=== PATIENT | male | born 1955 | race Caucasian/White ===

== ENCOUNTER 2021-04-17 14:37 | Outpatient (CLI) | payer MEDICARE | END 2021-04-17 14:38 | disposition home or self-care (01) | LOC: BICMRI 14:37 | PROVIDERS: ATTEND Specialist | DX: M51.16 Intervertebral disc disorders with radiculopathy, lumbar region (principal); M47.26 Other spondylosis with radiculopathy, lumbar region; M47.27 Other spondylosis with radiculopathy, lumbosacral region; M48.061 Spinal stenosis, lumbar region without neurogenic claudication; M41.9 Scoliosis, unspecified | CPT/HCPCS: 72148 ==

== ENCOUNTER 2021-05-14 11:14 | Outpatient (CLI) | payer MEDICARE | END 2021-05-14 11:15 | disposition home or self-care (01) | LOC: BICRAD 11:14 | PROVIDERS: ATTEND Specialist | DX: M43.06 Spondylolysis, lumbar region (principal); M41.86 Other forms of scoliosis, lumbar region | CPT/HCPCS: 72120 ==

== ENCOUNTER 2021-06-20 05:57 | Inpatient (IN) | payer MEDICARE ==
[2021-06-17 08:53] LABS: Anion Gap 13 mmol/L (10-20); BUN (Urea Nitrogen) 20 mg/dL (8.4-25.7); Calc. Creatinine Clearance 0 mL/min (70-130); Calcium 9.9 mg/dL (7.8-10.44); Carbon Dioxide 27 mmol/L (23-31); Chloride 102 mmol/L (98-107); Glucose 107 mg/dL (80-115); PTT 27.1 sec (22.0-33.0); Potassium 3.9 mmol/L (3.5-5.1); Sodium 138 mmol/L (136-145)
[2021-06-17 08:58] LABS: Hemoglobin 15.4 g/dL (13.5-17.5); Mean Corpuscular HGB CONC 34.8 g/dL (32.0-36.0); Mean Corpuscular Hemoglobin 32.4 pg (27.0-33.0); Mean Corpuscular Volume 92.9 fl (81.2-95.1); Mean Platelet Volume 9.6 fl (7.4-10.4); Platelet Count 184 10x3/uL (150-450); RBC Distribution Width 12.8 % (11.5-14.5); Red Blood Cell (RBC) Count 4.76 10x6/uL (4.32-5.72); White Blood Cell (WBC) Count 5.1 10x3/uL (3.5-10.5)
[2021-06-17 19:28] LABS: SARS-CoV-2 PCR by NAA Not Detected (NotDetected)
[2021-06-20] MEDS ORDERED: Fentanyl 100 MCG/2 ML VIAL ONE ×3 (06:34→14:54)
[2021-06-20] MEDS ORDERED: Thrombin 5000 UNITS/5 ML VIAL ONE ×2 (06:37→11:53)
[2021-06-20] MEDS ORDERED: Lidocaine 1% PF 5 ML VIAL ONE (07:43)
[2021-06-20] MEDS ORDERED: Ondansetron PF 4 MG/2 ML Vial ONE (07:43)
[2021-06-20] MEDS ORDERED: ePHEDrine 50 MG/ML VIAL ONE (07:43)
[2021-06-20] MEDS ORDERED: Rocuronium Bromide 10 MG/ML (10ML VIAL) ONE (07:43)
[2021-06-20] MEDS ORDERED: Ketorolac Tromethamine 30 MG/ML VIAL ONE (07:43)
[2021-06-20] MEDS ORDERED: PROPOFOL 200 MG/20 ML VIAL ONE (07:43)
[2021-06-20] MEDS ORDERED: PHENYLEPHRINE-NS 100 MCG/ML 10 ML SYRINGE ONE (07:43)
[2021-06-20] MEDS ORDERED: Phenylephrine 10 MG/ML VIAL ONE ×3 (08:43→12:04)
[2021-06-20] MEDS ORDERED: Rocuronium Bromide 50 MG/5 ML VIAL ONE (10:42)
[2021-06-20] MEDS ORDERED: HYDROmorphone 2 MG/ML VIAL ONE (11:40)
[2021-06-20] MEDS ORDERED: SUGAMMADEX SODIUM 200 MG/2 ML VIAL ONE (12:13)
[2021-06-20] MEDS ORDERED: Albumin 5% 500 ML ONE (12:24)
[2021-06-20] MEDS ORDERED: Morphine 2 MG/ML VIAL SLOW IVP PRN (13:58)
[2021-06-20] MEDS ORDERED: Acetaminophen 325 MG TAB PO PRN (13:58)
[2021-06-20] MEDS ORDERED: traMADol HCl 50 MG TAB PO PRN (13:58)
[2021-06-20] MEDS ORDERED: Acetaminophen/Codeine 30-300mg Tablet PO PRN (13:58)
[2021-06-20] MEDS ORDERED: Ondansetron HCl/PF 4 MG/2 ML Vial IVP PRN (14:03)
[2021-06-20] MEDS ORDERED: Promethazine HCl 25 MG/ML VIAL IVPB PRN (14:03)
[2021-06-20] MEDS ORDERED: Promethazine HCl 25 MG/ML VIAL IM PRN (14:03)
[2021-06-20] MEDS ORDERED: HYDROmorphone 2 MG/ML VIAL SLOW IVP PRN (14:03)
[2021-06-20] MEDS: Sodium Chloride 0.9% 1,000 ML IV SCH (16:30)
[2021-06-20] MEDS: CEFAZOLIN 2 GM in Premix Bag 1 BAG IVPB SCH ×2 (18:00→22:06)
[2021-06-20] MEDS: HYDROcodone/Acetaminophen 7.5/325 mg Tablet PO PRN (19:33)
[2021-06-20] MEDS: Naproxen 500 MG TAB PO SCH (20:20)
[2021-06-20] MEDS: tiZANidine HCl 4 MG TAB PO PRN (22:05)
[2021-06-21] MEDS: HYDROcodone/Acetaminophen 7.5/325 mg Tablet PO PRN ×2 (04:23→13:37)
[2021-06-21] MEDS: Sodium Chloride 0.9% 1,000 ML IV SCH ×2 (04:24→18:50)
[2021-06-21 06:05] LABS: #Lymphocytes 1.1 thou/uL (1.20-3.40); #Monocytes 0.8 thou/uL (0.11-0.59); #Neutrophils 7.8 thou/uL (1.40-6.50); %Basophils 0.1 % (0.0-1.0); %Eosinophils 0.1 % (0.0-10.0); %Lymphocytes 11.3 % (21.0-51.0); %Monocytes 8.3 % (0.0-10.0); %Neutrophils 80.2 % (42.0-75.0); Hemoglobin 11.6 g/dL (14.0-18.0); Mean Corpuscular HGB CONC 34.6 g/dL (32.0-36.0); Mean Corpuscular Hemoglobin 34.1 pg (27.0-31.0); Mean Corpuscular Volume 98.4 fL (78.0-98.0); Mean Platelet Volume 7.2 fL (7.4-10.4); Platelet Count 152 thou/uL (130-400); RBC Distribution Width 12.1 % (11.5-14.5); White Blood Cell (WBC) Count 9.8 thou/uL (4.8-10.8)
[2021-06-21 06:24] LABS: Anion Gap 11 mmol/L (10-20); BUN (Urea Nitrogen) 11 mg/dL (8.4-25.7); Calc. Creatinine Clearance 184 mL/min (70-130); Calcium 8.3 mg/dL (7.8-10.44); Carbon Dioxide 26 mmol/L (23-31); Chloride 106 mmol/L (98-107); Glucose 124 mg/dL (80-115); Sodium 139 mmol/L (136-145)
[2021-06-21] MEDS: CEFAZOLIN 2 GM in Premix Bag 1 BAG IVPB SCH ×3 (06:42→23:10)
[2021-06-21] MEDS: Hydrochlorothiazide 25 MG TAB PO SCH (08:57)
[2021-06-21] MEDS: Losartan 25 MG TAB PO SCH (08:57)
[2021-06-21] MEDS: Tamsulosin HCl 0.4 MG CAP PO SCH (08:57)
[2021-06-21] MEDS: tiZANidine HCl 4 MG TAB PO PRN ×2 (09:01→17:23)
[2021-06-21 11:04] VITALS: BMI 38.6
[2021-06-21] MEDS: Naproxen 500 MG TAB PO SCH (21:22)
[2021-06-22] MEDS: tiZANidine HCl 4 MG TAB PO PRN ×2 (00:43→16:46)
[2021-06-22] MEDS: HYDROcodone/Acetaminophen 7.5/325 mg Tablet PO PRN ×2 (05:24→20:38)
[2021-06-22] MEDS: CEFAZOLIN 2 GM in Premix Bag 1 BAG IVPB SCH (05:26)
[2021-06-22] MEDS: Sodium Chloride 0.9% 1,000 ML IV SCH ×2 (05:31→20:43)
[2021-06-22] MEDS: Tamsulosin HCl 0.4 MG CAP PO SCH (08:57)
[2021-06-22] MEDS: Hydrochlorothiazide 25 MG TAB PO SCH (09:47)
[2021-06-22] MEDS: Losartan 25 MG TAB PO SCH (09:47)
[2021-06-22] MEDS ORDERED: Polyethylene Glycol 3350 17 GM Packet PO PRN (12:29)
[2021-06-22] MEDS ORDERED: Docusate 100 MG CAP PO SCH (12:30)
[2021-06-22] MEDS: Docusate 100 MG CAP PO SCH (20:38)
[2021-06-22] MEDS: Naproxen 500 MG TAB PO SCH (20:39)
[2021-06-23] MEDS: Tamsulosin HCl 0.4 MG CAP PO SCH (08:26)
[2021-06-23] MEDS: Docusate 100 MG CAP PO SCH (08:26)
[2021-06-23] MEDS: Sodium Chloride 0.9% 1,000 ML IV SCH (08:27)
[2021-06-23] MEDS: Losartan 25 MG TAB PO SCH (08:27)
[2021-06-23] MEDS: Hydrochlorothiazide 25 MG TAB PO SCH (08:27)
[2021-06-23] MEDS: HYDROcodone/Acetaminophen 7.5/325 mg Tablet PO PRN ×2 (09:04→17:13)
[2021-06-23 11:37] VITALS: TEMP 98.2
[2021-06-23 15:32] VITALS: BP 132/82
== END 2021-06-23 17:20 | disposition home or self-care (01) | DRG 455 ==
LOC: SDC 05:57 → SJJU 13:31
PROVIDERS: ADMIT Surgery; ATTEND Surgery
PROC: 0SG00AJ Fusion of Lumbar Vertebral Joint with Interbody Fusion Device, Posterior Approach, Anterior Column, Open Approach (ICD-10-PCS; principal; 2021-06-20)
PROC: 01NB0ZZ Release Lumbar Nerve, Open Approach (ICD-10-PCS; 2021-06-20)
PROC: 0SB20ZZ Excision of Lumbar Vertebral Disc, Open Approach (ICD-10-PCS; 2021-06-20)
PROC: 0SG00K1 Fusion of Lumbar Vertebral Joint with Nonautologous Tissue Substitute, Posterior Approach, Posterior Column, Open Approach (ICD-10-PCS; 2021-06-20)
DX: M48.062 Spinal stenosis, lumbar region with neurogenic claudication (principal); M43.16 Spondylolisthesis, lumbar region; E66.9 Obesity, unspecified; M54.16 Radiculopathy, lumbar region; Z79.82 Long term (current) use of aspirin; Z79.899 Other long term (current) drug therapy; Z68.38 Body mass index [BMI] 38.0-38.9, adult
CPT/HCPCS: 36415; 76000; 80048; 85025; 85027; 85610; 85730; 86850; 86900; 86901; 93005; C1713; J0690; J1170; J1885; J2370; J2405; J2704; J3010; J3370; J3490; P9045; U0003; U0005

== ENCOUNTER 2021-08-06 10:19 | Outpatient (CLI) | payer MEDICARE | END 2021-08-06 10:20 | disposition home or self-care (01) | LOC: BICRAD 10:19 | PROVIDERS: ATTEND Physician Assistant | DX: M47.26 Other spondylosis with radiculopathy, lumbar region (principal); Z98.890 Other specified postprocedural states | CPT/HCPCS: 72100 ==

== ENCOUNTER 2021-09-25 12:38 | Outpatient (CLI) | payer MEDICARE ==
[2021-09-25 14:43] LABS: #Eosinphils 0.1 10x3/uL (0.0-0.5); #Monocytes 0.5 10x3/uL (0.0-1.1); #Neutrophils 2.2 10x3/uL (1.5-8.4); %Basophils 0.4 % (0.0-2.0); %Eosinophils 1.8 % (0.0-6.0); %Monocytes 10.6 % (0.0-10.0); %Neutrophils 44.2 % (40.0-75.0); Hemoglobin 15.8 g/dL (13.5-17.5); Mean Corpuscular HGB CONC 33.8 g/dL (32.0-36.0); Mean Corpuscular Volume 91.7 fl (81.2-95.1); Mean Platelet Volume 9.9 fl (7.4-10.4); Platelet Count 186 10x3/uL (150-450); RBC Distribution Width 12.9 % (11.5-14.5); Red Blood Cell (RBC) Count 5.09 10x6/uL (4.32-5.72)
[2021-09-25 15:00] LABS: Prothrombin Time 10.6 sec (9.5-12.1)
[2021-09-25 15:12] LABS: Anion Gap 14 mmol/L (10-20); BUN (Urea Nitrogen) 14 mg/dL (8.4-25.7); Calc. Creatinine Clearance 0 mL/min (70-130); Calcium 9.3 mg/dL (7.8-10.44); Carbon Dioxide 25 mmol/L (23-31); Chloride 103 mmol/L (98-107); Glucose 90 mg/dL (80-115); Potassium 4.1 mmol/L (3.5-5.1); Sodium 138 mmol/L (136-145)
[2021-09-26 11:59] LABS: SARS-CoV-2 PCR by NAA Not Detected (NotDetected)
== END 2021-09-25 12:39 | disposition home or self-care (01) ==
LOC: LABBT 12:38
PROVIDERS: ATTEND Orthopaedic Surgery
DX: Z01.812 Encounter for preprocedural laboratory examination (principal); M16.12 Unilateral primary osteoarthritis, left hip; Z20.822 Contact with and (suspected) exposure to COVID-19
CPT/HCPCS: 80048; 85025; 85610; 87081; U0003; U0005

== ENCOUNTER 2021-09-30 05:49 | Inpatient (IN) | payer MEDICARE ==
[2021-09-27 11:08] VITALS: BMI 38.6
[2021-09-30] MEDS ORDERED: ceFAZolin 2 GM/DEX 5% 100 ML BAG ONE (06:03)
[2021-09-30] MEDS ORDERED: Tranexamic Acid 1,000 MG/10 ML VIAL ONE (06:03)
[2021-09-30] MEDS ORDERED: Sodium Chloride 0.9% 100 ML ONE (06:03)
[2021-09-30] MEDS ORDERED: VANCOMYCIN 2 GRAM/400 ML BAG 2 GM in Premix Bag 1 BAG IVPB SCH (06:15)
[2021-09-30] MEDS ORDERED: Fentanyl 100 MCG/2 ML VIAL ONE ×2 (06:41→07:05)
[2021-09-30] MEDS ORDERED: Midazolam HCl 2 mg/2 ml Vial ONE (06:41)
[2021-09-30] MEDS ORDERED: PHENYLEPHRINE-NS 100 MCG/ML 10 ML SYRINGE ONE (06:47)
[2021-09-30] MEDS ORDERED: Bupivacaine HCl 0.5%/Epinephrine 1:200,000/PF 30 ml Vial ONE (06:47)
[2021-09-30] MEDS ORDERED: Esmolol 100 MG/10 ML VIAL ONE (06:47)
[2021-09-30] MEDS ORDERED: Ondansetron PF 4 MG/2 ML Vial ONE (06:47)
[2021-09-30] MEDS ORDERED: ePHEDrine 50 MG/ML VIAL ONE (06:47)
[2021-09-30] MEDS ORDERED: PROPOFOL 200 MG/20 ML VIAL ONE (06:47)
[2021-09-30] MEDS ORDERED: Propofol 500 MG/50 ML VIAL ONE ×2 (07:07→08:06)
[2021-09-30] MEDS ORDERED: Fentanyl 100 MCG/2 ML VIAL SLOW IVP PRN (07:09)
[2021-09-30] MEDS ORDERED: diphenhydrAMINE 25 MG CAP PO PRN (07:09)
[2021-09-30] MEDS ORDERED: Promethazine HCl 25 MG/ML VIAL IM PRN ×2 (07:09→08:24)
[2021-09-30] MEDS ORDERED: Zolpidem Tartrate 5 MG TAB PO PRN (07:09)
[2021-09-30] MEDS ORDERED: Ondansetron PF 4 MG/2 ML Vial IVP PRN (07:09)
[2021-09-30] MEDS ORDERED: Acetaminophen 325 MG TAB PO PRN (07:09)
[2021-09-30] MEDS ORDERED: Bupivacaine PF 0.5% 30 ML VIAL ONE (07:54)
[2021-09-30] MEDS ORDERED: EPINEPHrine 1 MG/ML AMP ONE (07:54)
[2021-09-30] MEDS ORDERED: Meperidine HCl/PF 25 MG/ML VIAL SLOW IVP PRN (08:24)
[2021-09-30] MEDS ORDERED: PACU-Morphine 4MG/ML VIAL SLOW IVP PRN (08:24)
[2021-09-30] MEDS ORDERED: Promethazine HCl 25 MG/ML VIAL IVPB PRN (08:24)
[2021-09-30] MEDS: HYDROcodone/Acetaminophen 10/325 mg Tablet PO PRN ×3 (10:29→17:41)
[2021-09-30] MEDS: Tamsulosin HCl 0.4 MG CAP PO SCH (10:32)
[2021-09-30] MEDS: Hydrochlorothiazide 25 MG TAB PO SCH (10:36)
[2021-09-30] MEDS: Losartan 25 MG TAB PO SCH (10:37)
[2021-09-30] MEDS: Aspirin 81 mg Enteric Coated Tablet PO SCH ×2 (10:38→20:24)
[2021-09-30] MEDS: Sodium Chloride 0.9% 1,000 ML IV SCH ×2 (10:38→17:16)
[2021-09-30] MEDS: Fentanyl 100 MCG/2 ML VIAL SLOW IVP PRN ×2 (11:18→20:26)
[2021-09-30] MEDS ORDERED: ceFAZolin Sodium/D5W 2 GM in Premix Bag 1 BAG IVPB SCH (14:00)
[2021-09-30] MEDS: ceFAZolin Sodium/D5W 2 GM in Premix Bag 1 BAG IVPB SCH (17:13)
[2021-10-01] MEDS: HYDROcodone/Acetaminophen 10/325 mg Tablet PO PRN ×3 (00:05→21:22)
[2021-10-01] MEDS: ceFAZolin Sodium/D5W 2 GM in Premix Bag 1 BAG IVPB SCH (00:06)
[2021-10-01] MEDS: Sodium Chloride 0.9% 1,000 ML IV SCH ×2 (03:13→12:01)
[2021-10-01 05:23] LABS: Hemoglobin 14.1 g/dL (14.0-18.0); Mean Corpuscular Hemoglobin 32.5 pg (27.0-31.0); Mean Corpuscular Volume 95.5 fL (78.0-98.0); Mean Platelet Volume 6.8 fL (7.4-10.4); Platelet Count 140 thou/uL (130-400); RBC Distribution Width 12.5 % (11.5-14.5); Red Blood Cell (RBC) Count 4.33 mill/uL (4.70-6.10); White Blood Cell (WBC) Count 5.9 thou/uL (4.8-10.8)
[2021-10-01] MEDS: Hydrochlorothiazide 25 MG TAB PO SCH (07:16)
[2021-10-01] MEDS: Losartan 25 MG TAB PO SCH (07:58)
[2021-10-01] MEDS: Senokot S 8.6-50 MG TAB PO SCH ×2 (07:58→21:24)
[2021-10-01] MEDS: Tamsulosin HCl 0.4 MG CAP PO SCH (07:59)
[2021-10-01] MEDS: Multivitamin W/ Minerals 1 TAB PO SCH (07:59)
[2021-10-01] MEDS: Aspirin 81 mg Enteric Coated Tablet PO SCH ×2 (07:59→21:24)
[2021-10-01] MEDS: Ferrous Gluconate 324 MG TAB PO SCH ×2 (07:59→16:35)
[2021-10-01] MEDS: tiZANidine HCl 4 MG TAB PO SCH ×4 (10:16→21:23)
[2021-10-02] MEDS: Sodium Chloride 0.9% 1,000 ML IV SCH ×2 (00:20→08:49)
[2021-10-02] MEDS: tiZANidine HCl 4 MG TAB PO SCH ×4 (01:51→14:06)
[2021-10-02] MEDS: Tamsulosin HCl 0.4 MG CAP PO SCH (08:41)
[2021-10-02] MEDS: Multivitamin W/ Minerals 1 TAB PO SCH (08:41)
[2021-10-02] MEDS: Ferrous Gluconate 324 MG TAB PO SCH (08:41)
[2021-10-02] MEDS: Losartan 25 MG TAB PO SCH (08:41)
[2021-10-02] MEDS: Hydrochlorothiazide 25 MG TAB PO SCH (08:42)
[2021-10-02] MEDS: Senokot S 8.6-50 MG TAB PO SCH (08:42)
[2021-10-02] MEDS: Aspirin 81 mg Enteric Coated Tablet PO SCH (08:43)
[2021-10-02 11:34] VITALS: BP 134/84; TEMP 98.4
[2021-10-02] MEDS: HYDROcodone/Acetaminophen 10/325 mg Tablet PO PRN (14:05)
== END 2021-10-02 14:22 | disposition home or self-care (01) | DRG 470 ==
LOC: SDC 05:49 → SJJU 10:14
PROVIDERS: ADMIT Orthopaedic Surgery; ATTEND Orthopaedic Surgery
PROC: 0SRB039 Replacement of Left Hip Joint with Ceramic Synthetic Substitute, Cemented, Open Approach (ICD-10-PCS; principal; 2021-09-30)
DX: M16.12 Unilateral primary osteoarthritis, left hip (principal); I10 Essential (primary) hypertension; E78.5 Hyperlipidemia, unspecified; Z79.899 Other long term (current) drug therapy
CPT/HCPCS: 36415; 85027; J0171; J2250; J2405; J2704; J3010; J3370; J3490; J7030; J7050; S0020

== ENCOUNTER 2021-10-02 16:24 | Observation (INO) | payer MEDICARE ==
[2021-10-02] MEDS ORDERED: Naloxone HCl 0.4 mg/ml Vial ONE ×2 (16:50→17:39)
[2021-10-02 17:34] LABS: #Eosinphils 0.1 thou/uL (0.0-0.7); #Lymphocytes 1.2 thou/uL (1.20-3.40); #Neutrophils 6.6 thou/uL (1.40-6.50); %Basophils 0.2 % (0.0-1.0); %Lymphocytes 13.4 % (21.0-51.0); %Monocytes 11.7 % (0.0-10.0); %Neutrophils 73.8 % (42.0-75.0); Hemoglobin 13.6 g/dL (14.0-18.0); Mean Corpuscular Hemoglobin 32.7 pg (27.0-31.0); Mean Corpuscular Volume 96.3 fL (78.0-98.0); RBC Distribution Width 12.6 % (11.5-14.5); Red Blood Cell (RBC) Count 4.16 mill/uL (4.70-6.10); White Blood Cell (WBC) Count 8.9 thou/uL (4.8-10.8)
[2021-10-02 17:50] LABS: Mean Platelet Volume 8.3 fL (7.4-10.4); Platelet Count 54 thou/uL (130-400); Platelet Morphology Comment Appears Decreased; RBC Morphology Normal
[2021-10-02 18:03] LABS: ALT (SGPT) 19 U/L (8-55); AST (SGOT) 35 U/L (5-34); Acetaminophen Less than 6.0 mcg/mL (10.0-30.0); Albumin 3.1 g/dL (3.4-4.8); Alcohol Less than 10 mg/dL (Less than 10); Alkaline Phosphatase 52 U/L (40-110); Anion Gap 16 mmol/L (10-20); BUN (Urea Nitrogen) 24 mg/dL (8.4-25.7); Bilirubin, Total 0.7 mg/dL (0.2-1.2); Calc. Creatinine Clearance 0 mL/min (70-130); Calcium 8.6 mg/dL (7.8-10.44); Carbon Dioxide 18 mmol/L (23-31); Chloride 100 mmol/L (98-107); Globulin 3.1 g/dL (2.4-3.5); Glucose 144 mg/dL (80-115); Potassium 4.1 mmol/L (3.5-5.1); Protein, Total 6.2 g/dL (5.8-8.1); Salicylate Less than 8.0 mg/dL (15.0-30.0); Sodium 130 mmol/L (136-145)
[2021-10-02 19:09] LABS: Bilirubin Negative (Negative); Blood, Urine Negative (Negative); Clarity Turbid (Clear); Glucose, Urine (Dipstick) Normal (Negative); Ketone, Urine Negative (Negative); Leukocyte Negative Leu/uL (Negative); Nitrite Negative (Negative); Protein, Urine (Dipstick) 20 mg/dL (Neg-Trace); Specific Gravity, Urine 1.015 (1.002-1.036); Urobilinogen Normal mg/dL (Less than 2); pH, Urine 5.5 (5.0-9.0)
[2021-10-02 19:18] LABS: Amphetamine Not Detected (NotDetected); Barbiturates Screen Not Detected (NotDetected); Benzodiazepine Screen Not Detected (NotDetected); Cocaine Metabolite Screen Not Detected (NotDetected); Methadone Not Detected (NotDetected); Methamphetamine Not Detected (NotDetected); Opiate Screen Detected (NotDetected); Oxycodone Screen Not Detected (NotDetected); Phencyclidine (PCP) Not Detected (NotDetected); THC/Cannabinoid Screen Not Detected (NotDetected); Tricyclic Screen Not Detected (NotDetected)
[2021-10-02] MEDS ORDERED: Ondansetron ODT 4 MG TAB PO PRN (20:17)
[2021-10-02 20:48] LABS: Lactic Acid 1.3 mmol/L (0.5-2.2)
[2021-10-02] MEDS ORDERED: HYDROcodone/Acetaminophen 10/325 mg Tablet PO PRN (21:09)
[2021-10-02] MEDS ORDERED: Naproxen 500 MG TAB PO PRN (21:17)
[2021-10-02] MEDS ORDERED: Aspirin 81 mg Enteric Coated Tablet PO SCH (21:30)
[2021-10-02] MEDS: Lactated Ringer's 1,000 ML IV SCH (23:13)
[2021-10-02 23:36] VITALS: BMI 39.6
[2021-10-02 23:36] LABS: Phosphorus 2.8 mg/dL (2.3-4.7)
[2021-10-03 05:01] LABS: #Eosinphils 0.1 thou/uL (0.0-0.7); #Lymphocytes 1.3 thou/uL (1.20-3.40); #Monocytes 0.7 thou/uL (0.11-0.59); %Basophils 0.2 % (0.0-1.0); %Eosinophils 1.3 % (0.0-10.0); %Lymphocytes 18.2 % (21.0-51.0); %Monocytes 10.1 % (0.0-10.0); %Neutrophils 70.1 % (42.0-75.0); Hemoglobin 13.3 g/dL (14.0-18.0); Mean Corpuscular Hemoglobin 33.1 pg (27.0-31.0); Mean Corpuscular Volume 94.6 fL (78.0-98.0); Mean Platelet Volume 6.8 fL (7.4-10.4); Platelet Count 138 thou/uL (130-400); RBC Distribution Width 12.5 % (11.5-14.5); Red Blood Cell (RBC) Count 4.03 mill/uL (4.70-6.10); White Blood Cell (WBC) Count 7.2 thou/uL (4.8-10.8)
[2021-10-03 05:46] LABS: Anion Gap 11 mmol/L (10-20); BUN (Urea Nitrogen) 15 mg/dL (8.4-25.7); Calc. Creatinine Clearance 182 mL/min (70-130); Calcium 9.2 mg/dL (7.8-10.44); Carbon Dioxide 24 mmol/L (23-31); Chloride 102 mmol/L (98-107); Glucose 113 mg/dL (80-115); Potassium 3.4 mmol/L (3.5-5.1); Sodium 134 mmol/L (136-145)
[2021-10-03] MEDS: Lactated Ringer's 1,000 ML IV SCH (06:15)
[2021-10-03] MEDS ORDERED: Potassium Chloride 20 MEQ TAB PO SCH (08:00)
[2021-10-03] MEDS ORDERED: Aspirin 81 mg Enteric Coated Tablet PO SCH (09:00)
[2021-10-03 11:50] VITALS: TEMP 98.9
[2021-10-03 12:37] VITALS: BP 169/96
== END 2021-10-03 13:05 | disposition home or self-care (01) ==
LOC: ERS 16:24 → NEURO 20:03
PROVIDERS: ADMIT Family Medicine; ATTEND Family Medicine
DX: G93.40 Encephalopathy, unspecified (principal); I95.9 Hypotension, unspecified; R79.89 Other specified abnormal findings of blood chemistry; E87.1 Hypo-osmolality and hyponatremia; E87.6 Hypokalemia; I10 Essential (primary) hypertension; N40.0 Benign prostatic hyperplasia without lower urinary tract symptoms; E78.5 Hyperlipidemia, unspecified; Z79.82 Long term (current) use of aspirin; Z79.899 Other long term (current) drug therapy; Z96.642 Presence of left artificial hip joint
CPT/HCPCS: 36415; 70450; 80048; 80053; 80306; 80307; 81003; 83605; 83735; 84100; 84484; 85025; 87040; 87086; 93005; 96374; J2310